=== PATIENT | male | born 1930 | race Caucasian/White ===

== ENCOUNTER → 2016-12-26 | Day surgery (SDC) | payer MEDICARE ==
[~2016-12-26] MED LIST: ACETAMINOPHEN 1000 MG/100 ML VIAL IV ONE; ALBU1AER INH; ASPI81TA82 PO; BUPIVACAINE/EPINEPHRINE 0.25% 50 ML VIAL ONE; FEXO180T PO; FLON0.053; FLUTI110I INH; GLUC500C3 PO; LACTATED RINGER'S 1000 ML INJ 1,000 ML ONE; LIDOCAINE 1%/EPINEPHrine 1:100,000 SOLN 20 ML VIAL ONE; LISI-360 PO; METO25 PO; OMEP20TA PO; PRAD150C PO; PROPOFOL 200 MG/20 ML AMP IV ONE; SIMV80TA PO
--- NOTE | 2016-12-26 12:43 | TN ---
cc: CLAUDIO MAIER MD DATE OF SURGERY 12/26/2016 PREOPERATIVE DIAGNOSIS Soft tissue mass right elbow. POSTOPERATIVE DIAGNOSES Soft tissue mass right elbow. 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 PROCEDURE Excision of soft tissue mass right elbow, 4 x 4 cm. COMPLICATIONS No complications. SPECIMENS Right elbow soft tissue mass. ESTIMATED BLOOD LOSS Minimal. ANESTHESIA MAC PROCEDURE IN DETAIL The patient was taken to the operating room and placed in a supine position. The right arm was placed on an armboard. MAC anesthesia was induced. The right arm was prepped and draped in the usual sterile fashion. The patient had a 4 x 4 cm mass in the right elbow towards the forearm. It was firm and partially mobile but was felt attached to underlying structures. Local anesthetic was injected in the skin and subcutaneous tissue around this mass and a longitudinal incision was created over it. Careful dissection sharply with the blade was used to fully excise the mass. It was whitish and firm and appeared to be consistent with a tophus. It was fixed to underlying tendons and it was carefully, sharply removed on the deep portion. It seemed to be completely removed, although I could not tell exactly the point of origin near the joint. The skin flaps were fairly thin and wide, therefore I did remove a portion of skin on either side. Hemostasis was achieved with electrocautery. The incision was then closed in two layers with deep dermal simple interrupted 3-0 Vicryl, followed by running subcuticular 4-0 Monocryl. Mastisol and Steri-Strips were applied. The patient tolerated the procedure well, was extubated and taken to PACU in stable condition. Claudio Maier MD JPD/SSB /9:14 AM /12:36 PM
== END | disposition home or self-care (01) ==
LOC: ESDC 06:37
PROVIDERS: ATTEND Surgery
DX: L94.2 Calcinosis cutis (principal)
CPT/HCPCS: 00400; 24071; 88305; J0131; J3010; J7120